=== PATIENT | male | born 1960 | race African-American/Black ===

== ENCOUNTER 2020-12-02 22:45 | Inpatient (IN) | payer OTHER ==
[~2020-12-02] VITALS: Ht 175.3 cm; Wt 92.1 kg
[~2020-12-02 22:45] MED LIST: ABIL5 PO; ASPI-864 PO; BENA20TA10 PO; BUSP10TA4 PO; CLON0.3T4 PO; FLUT1DIS3 IH
[2020-12-02] MEDS ORDERED: NITROGLYCERIN 50MG PREMIX 250 ML IV ONE (23:00)
[2020-12-02] MEDS ORDERED: FUROSEMIDE 100MG/10ML VIAL IVP ONE (23:00)
[2020-12-02 23:16] LABS: BG BASE EXCESS 0.2 mmol/L (-2.0-2.0); BG CARBOXYHEMOGLOBIN 1.7 % (0.5-1.5); BG DEOXYHEMOGLOBIN 0.9 % (0.0-5.0); BG FRACTION INSPIRED OXYGEN 100; BG HCO3 ACT 24.7 mmol/L (22.0-26.0); BG METHEMOGLOBIN 0.2 % (0.0-1.5); BG OXYGEN SATURATION 99.1 % (92.0-98.5); BG OXYHEMOGLOBIN 97.2 % (94.0-97.0); BG PCO2 39.6 mmHg (35.0-45.0); BG PH 7.413 (7.350-7.450); BG PO2 233.3 mmHg (75.0-100.0); BG SAMPLE SITE RIGHT RADIAL; BG VENT MODE MASK - NRB
[2020-12-02] MEDS ORDERED: AZITHROMYCIN 500 MG in DEXT 5% WATER 250 ML IV SCH (23:30)
[2020-12-02] MEDS ORDERED: CEFTRIAXONE 1 G PREMIX 50 ML IV NR (23:30)
[2020-12-02 23:35] LABS: BASOPHILS % 1.1 % (0.0-2.0); HEMATOCRIT. 41.1 % (42.0-52.0); HEMOGLOBIN. 13.9 g/dL (14.0-18.0); LYMPHOCYTES % 55.8 % (20.0-50.0); MEAN CORPUSCULAR HEMOGLOBIN 32.2 pg (28.0-32.0); MEAN CORPUSCULAR VOLUME 95.4 fL (80.0-94.0); MONOCYTES % 12.1 % (2.0-8.0); PLATELET 247 x1000/uL (130-400); RED BLOOD CELL COUNT 4.31 mill/uL (4.7-6.1); RED CELL DISTRIBUTION WIDTH 13.4 % (11.6-14.6)
[2020-12-02 23:40] LABS: CHLORIDE 112 mEq/L (98-107)
[2020-12-02] MEDS ORDERED: NITROGLYCERIN 50MG PREMIX 250 ML IV SCH (23:45)
[2020-12-03] VITALS (144 sets, daily range): BP systolic 101–222; BP diastolic 31–165
[2020-12-03] MEDS ORDERED: MAGNESIUM/ALUMINUM HYDROXIDE/SIMETHICONE 30ML UDC PO PRN (07:30)
[2020-12-03] MEDS ORDERED: IPRATROPIUM/ALBUTEROL 0.5-3(2.5)MG/3ML NEB NEB PRN (07:30)
[2020-12-03] MEDS ORDERED: ACETAMINOPHEN 325MG TABLET PO PRN (07:30)
[2020-12-03] MEDS ORDERED: MORPHINE SULFATE 2 MG/ML CPJ (NOT FOR IM USE) IV PRN (07:30)
[2020-12-03] MEDS ORDERED: HYDROCODONE/ACETAMINOPHEN 5/325MG TABLET PO PRN (07:30)
[2020-12-03] MEDS ORDERED: NA PHOS,M-B/NA PHOS,DI-BA ENEMA 118ML PR PRN (07:30)
[2020-12-03] MEDS ORDERED: DIPHENHYDRAMINE 50MG/ML VIAL IV PRN (07:30)
[2020-12-03] MEDS ORDERED: GUAIFENESIN 200MG/10ML SUGAR FREE UDC PO PRN (07:30)
[2020-12-03] MEDS ORDERED: ONDANSETRON HCL 4MG/2ML INJ IV PRN (07:30)
[2020-12-03] MEDS ORDERED: DOCUSATE SODIUM 100MG CAPSULE PO PRN (07:30)
[2020-12-03] MEDS ORDERED: LORAZEPAM 2MG/ML CPJ IV PRN (07:30)
[2020-12-03] MEDS ORDERED: DEXTROSE 50% WATER 50ML SYRINGE IV PRN (07:45)
[2020-12-03] MEDS: METHYLPREDNISOLONE SOD SUCC 125 MG/2 ML VIAL IV SCH ×3 (08:11→20:17)
[2020-12-03] MEDS: FUROSEMIDE 40MG/4ML VIAL IV SCH ×2 (08:11→16:47)
[2020-12-03] MEDS: METOPROLOL TARTRATE 25MG TABLET PO SCH ×2 (08:12→20:20)
[2020-12-03] MEDS: ENOXAPARIN 40MG/0.4ML SYR SUBCUT SCH (08:12)
[2020-12-03] MEDS: ASPIRIN 81MG EC TABLET PO SCH (08:12)
[2020-12-03] MEDS: CLONIDINE 0.1MG TABLET PO PRN ×2 (08:13→17:22)
[2020-12-03] MEDS: LISINOPRIL 20MG TABLET PO SCH (08:13)
[2020-12-03] MEDS: AMLODIPINE 10MG TABLET PO SCH (08:13)
[2020-12-03] MEDS: BLOOD SUGAR DIAGNOSTIC STRIP TEST SCH ×3 (11:11→21:49)
[2020-12-03] MEDS: INSULIN LISPRO 100 UNITS/ML SUBCUT SCH ×3 (11:41→22:08)
[2020-12-03 13:36] LABS: PHOSPHORUS 1.7 mg/dL (2.5-4.9)
[2020-12-03 18:36] LABS: CLARITY URINE CLEAR (CLEAR); COLOR URINE YELLOW (YELLOW); KETONES URINE NEGATIVE (NEGATIVE); LEUKOCYTE ESTERASE URINE NEGATIVE (NEGATIVE); NITRITE URINE NEGATIVE (NEGATIVE); OCCULT BLOOD URINE NEGATIVE (NEGATIVE); PROTEIN URINE 2+ (NEGATIVE)
[2020-12-04] VITALS (96 sets, daily range): BP systolic 136–200; BP diastolic 51–136
[2020-12-04] MEDS: METHYLPREDNISOLONE SOD SUCC 125 MG/2 ML VIAL IV SCH ×4 (02:35→20:57)
[2020-12-04 04:56] LABS: BASOPHILS % 0.3 % (0.0-2.0); HEMATOCRIT. 37.5 % (42.0-52.0); HEMOGLOBIN. 12.3 g/dL (14.0-18.0); LYMPHOCYTES % 8.2 % (20.0-50.0); MEAN CORPUSCULAR HEMOGLOBIN 31.1 pg (28.0-32.0); MEAN CORPUSCULAR VOLUME 94.8 fL (80.0-94.0); MEAN PLATELET VOLUME 9.6 fl (7.4-10.4); MONOCYTES % 2.1 % (2.0-8.0); NEUTROPHILS % 89.4 % (40.0-76.0); PLATELET 222 x1000/uL (130-400); RED BLOOD CELL COUNT 3.96 mill/uL (4.7-6.1); RED CELL DISTRIBUTION WIDTH 13.3 % (11.6-14.6)
[2020-12-04 05:02] LABS: CHLORIDE 107 mEq/L (98-107)
[2020-12-04 05:11] LABS: LDL CHOLESTEROL 120 mg/dL (5-100)
[2020-12-04 05:12] LABS: HDL CHOLESTEROL 45 mg/dL (40-59)
[2020-12-04 05:19] LABS: T4 FREE 1.19 ng/dL (0.76-1.46)
[2020-12-04] MEDS: BLOOD SUGAR DIAGNOSTIC STRIP TEST SCH ×4 (06:15→21:00)
[2020-12-04] MEDS: INSULIN LISPRO 100 UNITS/ML SUBCUT SCH ×4 (06:22→21:00)
[2020-12-04] MEDS: FUROSEMIDE 40MG/4ML VIAL IV SCH ×2 (06:52→16:58)
[2020-12-04] MEDS: ALBUTEROL 6.7GM HFA INHALER ORI SCH ×3 (08:10→20:55)
[2020-12-04] MEDS: ENOXAPARIN 40MG/0.4ML SYR SUBCUT SCH (08:18)
[2020-12-04] MEDS: ASPIRIN 81MG EC TABLET PO SCH (08:18)
[2020-12-04] MEDS: CLONIDINE 0.1MG TABLET PO PRN ×2 (08:18→22:57)
[2020-12-04] MEDS: AMLODIPINE 10MG TABLET PO SCH (08:18)
[2020-12-04] MEDS: LISINOPRIL 20MG TABLET PO SCH (08:18)
[2020-12-04] MEDS: METOPROLOL TARTRATE 25MG TABLET PO SCH ×2 (08:18→20:59)
[2020-12-04 14:55] LABS: *AMPHETAMINES SCREEN URINE NEGATIVE (NEGATIVE); *BARBITURATES SCREEN URINE NEGATIVE (NEGATIVE)
[2020-12-04 14:56] LABS: *BENZODIAZEPINES SCREEN URINE NEGATIVE (NEGATIVE); *COCAINE SCREEN URINE NEGATIVE (NEGATIVE); CANNABINOID URINE SCREEN PRESUMTIVE POSITIVE (NEGATIVE); METHADONE URINE SCREEN NEGATIVE (NEGATIVE); OPIATES URINE SCREEN NEGATIVE (NEGATIVE); PHENCYCLIDINE URINE SCREEN NEGATIVE (NEGATIVE)
[2020-12-04 18:03] LABS: CREATINE KINASE MB FRACTION 1.7 ng/mL (0.5-3.6)
[2020-12-04 23:36] LABS: CREATINE KINASE MB FRACTION 1.9 ng/mL (0.5-3.6)
[2020-12-05] VITALS (43 sets, daily range): BP systolic 143–194; BP diastolic 64–172
[2020-12-05] MEDS: ALBUTEROL 6.7GM HFA INHALER ORI SCH ×4 (00:30→11:00)
[2020-12-05] MEDS: HYDRALAZINE HCL 50MG TABLET PO SCH ×3 (01:06→13:31)
[2020-12-05] MEDS: METHYLPREDNISOLONE SOD SUCC 125 MG/2 ML VIAL IV SCH ×2 (01:56→09:25)
[2020-12-05 04:49] LABS: HEMATOCRIT. 37.4 % (42.0-52.0); HEMOGLOBIN. 12.4 g/dL (14.0-18.0); MEAN CORPUSCULAR HEMOGLOBIN 31.1 pg (28.0-32.0); MEAN CORPUSCULAR VOLUME 93.8 fL (80.0-94.0); PLATELET 209 x1000/uL (130-400); RED BLOOD CELL COUNT 3.98 mill/uL (4.7-6.1); RED CELL DISTRIBUTION WIDTH 13.2 % (11.6-14.6)
[2020-12-05 04:57] LABS: CHLORIDE 107 mEq/L (98-107)
[2020-12-05 05:08] LABS: CREATINE KINASE 45 IU/L (39-308)
[2020-12-05 05:09] LABS: CREATINE KINASE MB FRACTION 1.5 ng/mL (0.5-3.6)
[2020-12-05] MEDS: INSULIN LISPRO 100 UNITS/ML SUBCUT SCH ×3 (06:19→16:28)
[2020-12-05] MEDS: BLOOD SUGAR DIAGNOSTIC STRIP TEST SCH ×3 (06:19→16:25)
[2020-12-05] MEDS: CLONIDINE 0.1MG TABLET PO PRN (06:23)
[2020-12-05] MEDS: FUROSEMIDE 40MG/4ML VIAL IV SCH ×2 (06:45→17:20)
[2020-12-05] MEDS: CLONIDINE 0.2MG TABLET PO SCH ×2 (09:15→13:31)
[2020-12-05] MEDS: AMLODIPINE 10MG TABLET PO SCH (09:15)
[2020-12-05] MEDS: ASPIRIN 81MG EC TABLET PO SCH (09:15)
[2020-12-05] MEDS: ENOXAPARIN 40MG/0.4ML SYR SUBCUT SCH (09:15)
[2020-12-05] MEDS: METOPROLOL TARTRATE 25MG TABLET PO SCH (09:16)
[2020-12-05] MEDS: LISINOPRIL 20MG TABLET PO SCH (09:16)
[2020-12-05] MEDS ORDERED: IPRATROPIUM/ALBUTEROL 0.5-3(2.5)MG/3ML NEB HHN PRN (11:30)
[2020-12-05] MEDS ORDERED: PREDNISONE 20MG TABLET PO SCH (11:30)
[2020-12-05 11:53] LABS: PLATELET ESTIMATE NORMAL
[2020-12-05] MEDS ORDERED: IPRATROPIUM/ALBUTEROL 0.5-3(2.5)MG/3ML NEB HHN SCH (12:00)
== END 2020-12-05 20:00 | disposition left against medical advice (07) | DRG 194 ==
LOC: ER 22:45 → MICUSO 12-03 00:42 → ENRESERV 12-03 03:59 → 5WST 12-05 13:04
PROVIDERS: ADMIT Internal Medicine; ATTEND Internal Medicine
PROC: 5A09357 Assistance with Respiratory Ventilation, Less than 24 Consecutive Hours, Continuous Positive Airway Pressure (ICD-10-PCS; principal; 2020-12-03)
DX: I13.0 Hypertensive heart and chronic kidney disease with heart failure and stage 1 through stage 4 chronic kidney disease, or unspecified chronic kidney disease (principal); J96.00 Acute respiratory failure, unspecified whether with hypoxia or hypercapnia; N17.0 Acute kidney failure with tubular necrosis; I50.23 Acute on chronic systolic (congestive) heart failure; E11.22 Type 2 diabetes mellitus with diabetic chronic kidney disease; N18.31 Chronic kidney disease, stage 3a; I16.1 Hypertensive emergency; F17.210 Nicotine dependence, cigarettes, uncomplicated; J44.9 Chronic obstructive pulmonary disease, unspecified; F12.90 Cannabis use, unspecified, uncomplicated; F10.10 Alcohol abuse, uncomplicated; E11.40 Type 2 diabetes mellitus with diabetic neuropathy, unspecified; Z53.29 Procedure and treatment not carried out because of patient's decision for other reasons; Z20.822 Contact with and (suspected) exposure to COVID-19; Z86.73 Personal history of transient ischemic attack (TIA), and cerebral infarction without residual deficits
CPT/HCPCS: 36415; 36600; 71045; 76770; 80048; 80053; 80061; 80305; 81003; 82375; 82550; 82553; 82570; 82805; 82962; 83036; 83735; 83880; 84100; 84156; 84439; 84443; 84484; 85025; 85379; 93005; 93970; 94640; 94660; 99291; J0456; J0696; J1650; J1815; J1940; J2930; J3490; J7060; J7512; U0003

== ENCOUNTER 2022-12-02 09:33 | Inpatient (IN) | payer MEDICAID, OTHER ==
[~2022-12-02] VITALS: Ht 190.5 cm; Wt 87.5 kg
[2022-12-02] VITALS (9 sets, daily range): BP systolic 142–177; BP diastolic 70–128
[~2022-12-02 09:33] MED LIST changes: +BENA-8 PO; -BENA20TA10 PO
[2022-12-02] MEDS ORDERED: LABETALOL 5MG/ML SYR 20 MG/4 ML SYRINGE IV ONE (09:45)
[2022-12-02] MEDS ORDERED: NICARDIPINE 40MG/200ML PREMIX 200 ML IV ONE (09:45)
[2022-12-02 10:19] LABS: BASOPHILS % 0.8 % (0.0-2.0); EOSINOPHILS % 4.3 % (0.0-5.0); HEMATOCRIT. 40.5 % (42.0-52.0); HEMOGLOBIN. 13.7 g/dL (14.0-18.0); MEAN CORPUSCULAR HEMOGLOBIN 33.1 pg (28.0-32.0); MEAN CORPUSCULAR VOLUME 97.8 fL (80.0-94.0); MEAN PLATELET VOLUME 9.5 fl (7.4-10.4); MONOCYTES % 9.9 % (2.0-8.0); PLATELET 154 x1000/uL (130-400); RED BLOOD CELL COUNT 4.14 mill/uL (4.7-6.1); RED CELL DISTRIBUTION WIDTH 14.4 % (11.6-14.6)
[2022-12-02 10:28] LABS: PROTHROMBIN TIME 11.1 sec (9.6-11.0)
[2022-12-02 10:29] LABS: CHLORIDE 104 mEq/L (98-107)
[2022-12-02 10:41] LABS: CREATINE KINASE 60 IU/L (39-308); ETHANOL BLOOD < 10 mg/dL; LDL CHOLESTEROL 54 mg/dL (5-100)
[2022-12-02 11:20] LABS: CLARITY URINE CLEAR (CLEAR); COLOR URINE YELLOW (YELLOW); KETONES URINE NEGATIVE (NEGATIVE); LEUKOCYTE ESTERASE URINE NEGATIVE (NEGATIVE); NITRITE URINE POSITIVE (NEGATIVE); OCCULT BLOOD URINE TRACE (NEGATIVE); PH URINE 7.5 (4.5-8.0); PROTEIN URINE 2+ (NEGATIVE); SPECIFIC GRAVITY URINE 1.027 (1.005-1.030)
[2022-12-02] MEDS ORDERED: ASPIRIN 81MG TABLET PO ONE (11:30)
[2022-12-02] MEDS ORDERED: CLOPIDOGREL 75MG TABLET PO ONE (11:30)
[2022-12-02] MEDS ORDERED: FUROSEMIDE 20MG/2ML VIAL IVP ONE (12:00)
[2022-12-02] MEDS ORDERED: CEFTRIAXONE 1GM PREMIX 50 ML IV ONE (12:00)
[2022-12-02 12:19] LABS: *AMPHETAMINES SCREEN URINE NEGATIVE (NEGATIVE); *BARBITURATES SCREEN URINE NEGATIVE (NEGATIVE); *BENZODIAZEPINES SCREEN URINE NEGATIVE (NEGATIVE); *COCAINE SCREEN URINE NEGATIVE (NEGATIVE); CANNABINOID URINE SCREEN PRESUMTIVE POSITIVE (NEGATIVE); METHADONE URINE SCREEN NEGATIVE (NEGATIVE); OPIATES URINE SCREEN PRESUMTIVE POSITIVE (NEGATIVE); PHENCYCLIDINE URINE SCREEN NEGATIVE (NEGATIVE)
[2022-12-02] MEDS ORDERED: NICARDIPINE 40MG/200ML PREMIX 200 ML IV STA (12:36)
[2022-12-02] MEDS ORDERED: IOHEXOL-350 100 ML BOTTLE ONE (13:34)
[2022-12-02] MEDS ORDERED: NICARDIPINE 40MG/200ML PREMIX 200 ML IV PRN (18:00)
[2022-12-02] MEDS ORDERED: HYDROCODONE/ACETAMINOPHEN 5/325MG TABLET PO PRN (23:45)
[2022-12-02] MEDS ORDERED: GUAIFENESIN 200MG/10ML SUGAR FREE UDC PO PRN (23:45)
[2022-12-02] MEDS ORDERED: ENOXAPARIN 40MG/0.4ML SYR SUBCUT SCH (23:45)
[2022-12-02] MEDS ORDERED: IPRATROPIUM/ALBUTEROL 0.5-3(2.5)MG/3ML NEB HHN PRN (23:45)
[2022-12-02] MEDS ORDERED: ACETAMINOPHEN 325MG TABLET PO PRN ×2 (23:45)
[2022-12-02] MEDS ORDERED: CLONIDINE 0.1MG TABLET PO PRN (23:45)
[2022-12-02] MEDS ORDERED: NALOXONE HCL 0.4MG/ML VIAL IV PRN (23:45)
[2022-12-02] MEDS ORDERED: ONDANSETRON HCL 4MG/2ML INJ IV PRN (23:45)
[2022-12-02] MEDS ORDERED: DOCUSATE SODIUM 100MG CAPSULE PO PRN (23:45)
[2022-12-03] VITALS (95 sets, daily range): BP systolic 132–209; BP diastolic 41–144
[2022-12-03] MEDS ORDERED: DEXTROSE 50% WATER 50ML SYRINGE IV PRN
[2022-12-03] MEDS: INSULIN GLARGINE 100 UNITS/ML SUBCUT SCH ×2 (00:32→21:20)
[2022-12-03] MEDS: NICARDIPINE 40MG/200ML PREMIX 200 ML IV PRN ×6 (01:19→17:42)
[2022-12-03 05:08] LABS: BASOPHILS % 0.7 % (0.0-2.0); EOSINOPHILS % 4.2 % (0.0-5.0); HEMATOCRIT. 41.9 % (42.0-52.0); HEMOGLOBIN. 14.4 g/dL (14.0-18.0); LYMPHOCYTES % 24.7 % (20.0-50.0); MEAN CORPUSCULAR HEMOGLOBIN 33.5 pg (28.0-32.0); MEAN CORPUSCULAR VOLUME 97.8 fL (80.0-94.0); MEAN PLATELET VOLUME 9.9 fl (7.4-10.4); MONOCYTES % 10.2 % (2.0-8.0); NEUTROPHILS % 60.2 % (40.0-76.0); PLATELET 167 x1000/uL (130-400); RED BLOOD CELL COUNT 4.28 mill/uL (4.7-6.1); RED CELL DISTRIBUTION WIDTH 14.7 % (11.6-14.6)
[2022-12-03 05:26] LABS: CHLORIDE 109 mEq/L (98-107)
[2022-12-03 05:41] LABS: HDL CHOLESTEROL 34 mg/dL (40-59); LDL CHOLESTEROL 56 mg/dL (5-100); T4 FREE 1.23 ng/dL (0.76-1.46)
[2022-12-03 06:04] LABS: SODIUM URINE RANDOM 24 mEq/L
[2022-12-03] MEDS: BLOOD SUGAR DIAGNOSTIC STRIP TEST SCH ×4 (07:58→21:10)
[2022-12-03] MEDS ORDERED: ENOXAPARIN 30MG/0.3ML SYR SUBCUT SCH (09:00)
[2022-12-03] MEDS: FUROSEMIDE 40MG/4ML VIAL IVP SCH ×2 (09:52→17:42)
[2022-12-03] MEDS: ASPIRIN 81MG EC TABLET PO SCH (09:52)
[2022-12-03] MEDS: CLOPIDOGREL 75MG TABLET PO SCH (09:52)
[2022-12-03] MEDS: PANTOPRAZOLE SODIUM 40 MG/VIAL IV SCH (09:52)
[2022-12-03] MEDS: INSULIN LISPRO 100 UNITS/ML SUBCUT SCH ×4 (09:53→21:20)
[2022-12-03] MEDS ORDERED: PNEUMOCOCCAL 23-VAL P-SAC VAC 0.5 ML IM ONE (11:00)
[2022-12-03] MEDS: ATORVASTATIN CALCIUM 40MG TABLET PO SCH (21:16)
[2022-12-04] VITALS (91 sets, daily range): BP systolic 65–217; BP diastolic 18–174
[2022-12-04] MEDS: NICARDIPINE 40MG/200ML PREMIX 200 ML IV PRN ×2 (05:02→12:48)
[2022-12-04 05:26] LABS: BASOPHILS % 1.2 % (0.0-2.0); EOSINOPHILS % 5.2 % (0.0-5.0); HEMATOCRIT. 40.7 % (42.0-52.0); HEMOGLOBIN. 13.7 g/dL (14.0-18.0); LYMPHOCYTES % 27.3 % (20.0-50.0); MEAN CORPUSCULAR HEMOGLOBIN 32.8 pg (28.0-32.0); MEAN CORPUSCULAR VOLUME 97.7 fL (80.0-94.0); MEAN PLATELET VOLUME 9.8 fl (7.4-10.4); MONOCYTES % 12.1 % (2.0-8.0); NEUTROPHILS % 54.2 % (40.0-76.0); PLATELET 155 x1000/uL (130-400); RED BLOOD CELL COUNT 4.17 mill/uL (4.7-6.1); RED CELL DISTRIBUTION WIDTH 14.3 % (11.6-14.6)
[2022-12-04 05:46] LABS: CHLORIDE 109 mEq/L (98-107)
[2022-12-04] MEDS: ENOXAPARIN 40MG/0.4ML SYR SUBCUT SCH (06:19)
[2022-12-04] MEDS: BLOOD SUGAR DIAGNOSTIC STRIP TEST SCH ×4 (08:05→21:15)
[2022-12-04] MEDS: INSULIN LISPRO 100 UNITS/ML SUBCUT SCH ×4 (08:25→21:29)
[2022-12-04] MEDS: PANTOPRAZOLE SODIUM 40 MG/VIAL IV SCH (08:25)
[2022-12-04] MEDS: ASPIRIN 81MG EC TABLET PO SCH (08:26)
[2022-12-04] MEDS: CLOPIDOGREL 75MG TABLET PO SCH (08:27)
[2022-12-04] MEDS: FUROSEMIDE 40MG/4ML VIAL IVP SCH ×2 (08:27→17:45)
[2022-12-04] MEDS ORDERED: LORAZEPAM 0.5MG TABLET PO NR (09:45)
[2022-12-04] MEDS: HYDRALAZINE HCL 25MG TABLET PO SCH ×2 (13:58→21:28)
[2022-12-04] MEDS: CLONIDINE 0.2MG TABLET PO SCH ×2 (13:59→21:28)
[2022-12-04] MEDS ORDERED: NICARDIPINE 50 MG in SODIUM CHLORIDE 0.9% 250 ML IV PRN (15:00)
[2022-12-04] MEDS: TAMSULOSIN HCL 0.4MG SR CAPSULE PO SCH (17:45)
[2022-12-04] MEDS: ATORVASTATIN CALCIUM 40MG TABLET PO SCH (21:27)
[2022-12-04] MEDS: INSULIN GLARGINE 100 UNITS/ML SUBCUT SCH (21:30)
[2022-12-05] VITALS (53 sets, daily range): BP systolic 126–191; BP diastolic 62–126
[2022-12-05 04:59] LABS: BASOPHILS % 0.7 % (0.0-2.0); EOSINOPHILS % 3.3 % (0.0-5.0); HEMATOCRIT. 40.4 % (42.0-52.0); HEMOGLOBIN. 13.6 g/dL (14.0-18.0); LYMPHOCYTES % 21.7 % (20.0-50.0); MEAN CORPUSCULAR HEMOGLOBIN 32.9 pg (28.0-32.0); MEAN CORPUSCULAR VOLUME 97.6 fL (80.0-94.0); MEAN PLATELET VOLUME 9.7 fl (7.4-10.4); MONOCYTES % 13.2 % (2.0-8.0); NEUTROPHILS % 61.1 % (40.0-76.0); PLATELET 155 x1000/uL (130-400); RED BLOOD CELL COUNT 4.14 mill/uL (4.7-6.1); RED CELL DISTRIBUTION WIDTH 14.1 % (11.6-14.6)
[2022-12-05 05:06] LABS: CHLORIDE 110 mEq/L (98-107)
[2022-12-05] MEDS: CLONIDINE 0.2MG TABLET PO SCH ×2 (05:51→14:12)
[2022-12-05] MEDS: HYDRALAZINE HCL 25MG TABLET PO SCH ×2 (05:52→14:11)
[2022-12-05] MEDS: BLOOD SUGAR DIAGNOSTIC STRIP TEST SCH ×2 (07:50→12:56)
[2022-12-05] MEDS: INSULIN LISPRO 100 UNITS/ML SUBCUT SCH ×2 (09:35→12:56)
[2022-12-05] MEDS: ASPIRIN 81MG EC TABLET PO SCH (09:42)
[2022-12-05] MEDS: PANTOPRAZOLE SODIUM 40 MG/VIAL IV SCH (09:42)
[2022-12-05] MEDS: ENOXAPARIN 40MG/0.4ML SYR SUBCUT SCH (09:42)
[2022-12-05] MEDS: CLOPIDOGREL 75MG TABLET PO SCH (09:42)
[2022-12-05] MEDS: TAMSULOSIN HCL 0.4MG SR CAPSULE PO SCH (09:42)
[2022-12-05] MEDS: FUROSEMIDE 40MG/4ML VIAL IVP SCH (09:42)
== END 2022-12-05 17:45 | disposition left against medical advice (07) | DRG 45 ==
LOC: ER 09:35 → CVICU 11:29 → ENRESERV 21:27
PROVIDERS: ADMIT Internal Medicine; ATTEND Internal Medicine
DX: I63.9 Cerebral infarction, unspecified (principal); I50.41 Acute combined systolic (congestive) and diastolic (congestive) heart failure; E44.0 Moderate protein-calorie malnutrition; N17.9 Acute kidney failure, unspecified; I65.22 Occlusion and stenosis of left carotid artery; E11.51 Type 2 diabetes mellitus with diabetic peripheral angiopathy without gangrene; E78.5 Hyperlipidemia, unspecified; I13.0 Hypertensive heart and chronic kidney disease with heart failure and stage 1 through stage 4 chronic kidney disease, or unspecified chronic kidney disease; J44.9 Chronic obstructive pulmonary disease, unspecified; N39.0 Urinary tract infection, site not specified; Z20.822 Contact with and (suspected) exposure to COVID-19; N18.30 Chronic kidney disease, stage 3 unspecified; E11.22 Type 2 diabetes mellitus with diabetic chronic kidney disease; F17.210 Nicotine dependence, cigarettes, uncomplicated; I16.1 Hypertensive emergency; I34.0 Nonrheumatic mitral (valve) insufficiency; I25.2 Old myocardial infarction; Z53.29 Procedure and treatment not carried out because of patient's decision for other reasons; Z82.49 Family history of ischemic heart disease and other diseases of the circulatory system; Z79.82 Long term (current) use of aspirin; Z86.73 Personal history of transient ischemic attack (TIA), and cerebral infarction without residual deficits; Z79.02 Long term (current) use of antithrombotics/antiplatelets; Z79.4 Long term (current) use of insulin; Z79.899 Other long term (current) drug therapy
CPT/HCPCS: 36415; 70496; 70498; 70551; 71045; 76770; 76872; 80053; 80061; 80305; 80320; 81003; 82088; 82550; 82962; 83036; 83721; 83735; 83880; 83935; 84153; 84244; 84300; 84439; 84443; 84484; 85025; 85379; 87426; 90732; 92610; 93005; 93306; 93970; 97162; 99291; C9113; C9803; J0696; J1650; J1815; J1940; J3490; Q9967; G0103; G0480

== ENCOUNTER 2023-12-16 09:24 | Inpatient (IN) | payer MEDICAID, OTHER ==
[~2023-12-16] VITALS: Ht 172.7 cm; Wt 68.0 kg
[2023-12-16 09:28] VITALS: O2SAT 96
[2023-12-16 10:15] LABS: BASOPHILS % 0.2 % (0.0-2.0); HEMATOCRIT. 26.8 % (42.0-52.0); HEMOGLOBIN. 8.1 g/dL (14.0-18.0); LYMPHOCYTES % 7.1 % (20.0-50.0); MEAN CORPUSCULAR HEMOGLOBIN 22.2 pg (28.0-32.0); MEAN CORPUSCULAR HGB CONC 30.2 g/dL (31.0-37.0); MEAN CORPUSCULAR VOLUME 73.5 fL (80.0-94.0); MONOCYTES % 7.8 % (2.0-8.0); NEUTROPHILS % 84.9 % (40.0-76.0); PLATELET 446 x1000/uL (130-400); RED BLOOD CELL COUNT 3.65 mill/uL (4.7-6.1); RED CELL DISTRIBUTION WIDTH 25.3 % (11.6-14.6); WHITE BLOOD COUNT 12.1 x1000/uL (4.5-11.0)
[2023-12-16] MEDS: SODIUM CHLORIDE 0.9% 1,000 ML IV ONE ×2 (10:18→11:59)
[2023-12-16] MEDS: KETOROLAC 30MG/ML VIAL IV STA (10:18)
[2023-12-16] MEDS: ONDANSETRON HCL 4MG/2ML INJ IV STA (10:18)
[2023-12-16 10:23] LABS: ADD RBC MORPHOLOGY YES; DIFFERENTIAL COMMENT 1
[2023-12-16 10:31] LABS: CHLORIDE 101 mEq/L (98-107); POTASSIUM 3.9 mEq/L (3.5-5.1); SODIUM 145 mEq/L (136-145)
[2023-12-16 10:32] LABS: CARBON DIOXIDE 26 mEq/L (21-32)
[2023-12-16 10:33] LABS: CALCIUM 10.1 mg/dL (8.7-10.4)
[2023-12-16 10:37] LABS: CREATININE 4.1 mg/dL (0.6-1.3); GLUCOSE 181 mg/dL (70-105)
[2023-12-16 10:38] LABS: UREA NITROGEN BLOOD 66 mg/dL (9-23)
[2023-12-16 10:39] LABS: ALANINE AMINOTRANSFERASE < 7 IU/L (10-49); ALBUMIN 4.7 g/dL (3.2-4.8); ASPARTATE AMINOTRANSFERASE 16 IU/L (<34)
[2023-12-16 10:40] LABS: BILIRUBIN TOTAL 0.7 mg/dL (0.1-1.0); PROTEIN TOTAL 8.1 g/dL (6.0-8.3)
[2023-12-16] MEDS: HYDRALAZINE 20MG/ML VIAL IV ONE (10:54)
[2023-12-16 11:00] LABS: MICROCYTOSIS 2+; PLATELET ESTIMATE INCREASED
[2023-12-16 11:01] LABS: ANISOCYTOSIS 3+; HYPOCHROMASIA 1+; TARGET CELLS FEW
[2023-12-16] MEDS: ONDANSETRON HCL 4MG/2ML INJ IV ONE (11:30)
[2023-12-16] MEDS: MORPHINE SULFATE 4 MG/ML INJ (FOR IV/IM USE) IV ONE (12:00)
[2023-12-16 12:07] LABS: TROPONIN I HIGH SENSITIVITY 198 ng/L (3.0-53)
[2023-12-16] MEDS ORDERED: CLONIDINE HCL 0.2MG/24HR PATCH TD NR (15:00)
[2023-12-16] MEDS: SODIUM CHLORIDE 0.9% 1,000 ML IV SCH (15:14)
[2023-12-16 18:11] VITALS: BP 186/80; PULSE 127; RESP 20; TEMP 97.2
[2023-12-16] MEDS ORDERED: ONDANSETRON HCL 4MG/2ML INJ IV PRN ×2 (18:15→23:45)
[2023-12-16] MEDS ORDERED: CODE473S7 MT (19:06)
[2023-12-16] MEDS ORDERED: INSHUMSS SUBCUT (19:06)
[2023-12-16] MEDS ORDERED: EMPA10TA PO (19:06)
[2023-12-16] MEDS ORDERED: GABA-532 PO (19:06)
[2023-12-16] MEDS ORDERED: FERR-71 MT (19:06)
[2023-12-16] MEDS ORDERED: CLOP75TA33 PO (19:06)
[2023-12-16] MEDS ORDERED: HYDR50TA40 PO (19:06)
[2023-12-16] MEDS ORDERED: HYDR12.54 PO (19:06)
[2023-12-16] MEDS ORDERED: METO-539 MT (19:06)
[2023-12-16] MEDS ORDERED: POTA-204 MT (19:06)
[2023-12-16] MEDS ORDERED: OXYB-52 PO (19:06)
[2023-12-16] MEDS ORDERED: FURO-151 PO (19:06)
[2023-12-16 20:00] VITALS: BP 170/86; PULSE 107; RESP 20; TEMP 98.3
[2023-12-16] MEDS ORDERED: *PATIENT'S OWN MEDICATION STORAGE XX SCH (20:00)
[2023-12-16] MEDS ORDERED: ACETAMINOPHEN 325MG TABLET PO PRN (23:45)
[2023-12-17] VITALS (29 sets, daily range): BP systolic 104–182; BP diastolic 54–99; PULSE 58–106; RESP 0–23; TEMP 96.3–98.7
[2023-12-17] MEDS: HYDRALAZINE 20MG/ML VIAL IV PRN (00:24)
[2023-12-17] MEDS: DEXT 5%/0.45% NACL 1000ML 1,000 ML IV SCH (05:18)
[2023-12-17 07:42] LABS: CARBON DIOXIDE 25 mEq/L (21-32); CHLORIDE 115 mEq/L (98-107); POTASSIUM 3.5 mEq/L (3.5-5.1); SODIUM 149 mEq/L (136-145)
[2023-12-17 07:43] LABS: CALCIUM 8.6 mg/dL (8.7-10.4)
[2023-12-17 07:47] LABS: GLUCOSE 159 mg/dL (70-105)
[2023-12-17 07:48] LABS: UREA NITROGEN BLOOD 50 mg/dL (9-23)
[2023-12-17 07:50] LABS: PHOSPHORUS 3.8 mg/dL (2.5-4.9)
[2023-12-17 07:51] LABS: TROPONIN I HIGH SENSITIVITY 13415 ng/L (3.0-53)
[2023-12-17 07:52] LABS: CREATININE 2.8 mg/dL (0.6-1.3)
[2023-12-17 08:06] LABS: BASOPHILS % 0.4 % (0.0-2.0); EOSINOPHILS % 0.5 % (0.0-5.0); HEMATOCRIT. 22.9 % (42.0-52.0); HEMOGLOBIN. 7.1 g/dL (14.0-18.0); LYMPHOCYTES % 7.2 % (20.0-50.0); MEAN CORPUSCULAR HEMOGLOBIN 22.7 pg (28.0-32.0); MEAN CORPUSCULAR HGB CONC 30.8 g/dL (31.0-37.0); MEAN CORPUSCULAR VOLUME 73.7 fL (80.0-94.0); MEAN PLATELET VOLUME 8.2 fl (7.4-10.4); MONOCYTES % 8.2 % (2.0-8.0); NEUTROPHILS % 83.7 % (40.0-76.0); PLATELET 326 x1000/uL (130-400); RED BLOOD CELL COUNT 3.11 mill/uL (4.7-6.1); WHITE BLOOD COUNT 10.1 x1000/uL (4.5-11.0)
[2023-12-17 08:15] LABS: ADD RBC MORPHOLOGY NO; DIFFERENTIAL COMMENT 1
[2023-12-17] MEDS: CLOPIDOGREL 75MG TABLET PO SCH (08:34)
[2023-12-17] MEDS: ARIPIPRAZOLE 5MG TABLET PO SCH (08:34)
[2023-12-17] MEDS: BUSPIRONE HCL 10MG TABLET PO SCH (08:34)
[2023-12-17] MEDS: ASPIRIN 81MG EC TABLET PO SCH (08:35)
[2023-12-17] MEDS: METOPROLOL TARTRATE 50MG TABLET PO SCH (08:35)
[2023-12-17] MEDS: CLONIDINE 0.3MG TABLET PO SCH (08:36)
[2023-12-17] MEDS: HYDRALAZINE HCL 50MG TABLET PO SCH (08:36)
[2023-12-17] MEDS: PIPERACILLIN/TAZO 3.375G/50ML 50 ML IV SCH (08:38)
[2023-12-17] MEDS: PANTOPRAZOLE SODIUM 40 MG/VIAL IV SCH (08:38)
[2023-12-17] MEDS: ENOXAPARIN 80MG/0.8ML SYR SUBCUT SCH (12:47)
[2023-12-17 15:31] LABS: TROPONIN I HIGH SENSITIVITY 17911 ng/L (3.0-53)
[2023-12-17] MEDS: TERAZOSIN HCL 1MG CAPSULE PO SCH (21:00)
[2023-12-17] MEDS: ATORVASTATIN CALCIUM 40MG TABLET PO SCH (21:00)
[2023-12-17 23:48] LABS: TROPONIN I HIGH SENSITIVITY 21334 ng/L (3.0-53)
[2023-12-18] VITALS (9 sets, daily range): BP systolic 106–154; BP diastolic 48–75; PULSE 56–94; RESP 15–23; TEMP 97.1
== END 2023-12-18 10:49 | disposition left against medical advice (07) | DRG 190 ==
LOC: ER 09:24 → 7WST 13:35 → EDBEDREQSVC 13:41 → EDBEDREQ 13:41 → EDBEDREQTM 13:41 → CVICU 12-17 09:57
PROVIDERS: ADMIT Internal Medicine; ATTEND Internal Medicine
DX: I21.4 Non-ST elevation (NSTEMI) myocardial infarction (principal); E87.0 Hyperosmolality and hypernatremia; N17.9 Acute kidney failure, unspecified; I13.0 Hypertensive heart and chronic kidney disease with heart failure and stage 1 through stage 4 chronic kidney disease, or unspecified chronic kidney disease; I50.9 Heart failure, unspecified; I69.351 Hemiplegia and hemiparesis following cerebral infarction affecting right dominant side; E11.22 Type 2 diabetes mellitus with diabetic chronic kidney disease; D64.9 Anemia, unspecified; N32.89 Other specified disorders of bladder; K42.0 Umbilical hernia with obstruction, without gangrene; D72.829 Elevated white blood cell count, unspecified; I16.1 Hypertensive emergency; E78.5 Hyperlipidemia, unspecified; F17.210 Nicotine dependence, cigarettes, uncomplicated; I25.10 Atherosclerotic heart disease of native coronary artery without angina pectoris; I65.22 Occlusion and stenosis of left carotid artery; N18.30 Chronic kidney disease, stage 3 unspecified; J44.89 Other specified chronic obstructive pulmonary disease; I49.3 Ventricular premature depolarization; I34.0 Nonrheumatic mitral (valve) insufficiency; E11.51 Type 2 diabetes mellitus with diabetic peripheral angiopathy without gangrene; Z53.29 Procedure and treatment not carried out because of patient's decision for other reasons; F12.90 Cannabis use, unspecified, uncomplicated; Z91.199 Patient's noncompliance with other medical treatment and regimen due to unspecified reason; N13.9 Obstructive and reflux uropathy, unspecified
CPT/HCPCS: 36415; 71045; 74018; 74176; 80048; 80053; 83735; 84100; 84153; 84484; 85025; 93005; 93970; 99291; A6261; C9113; J0360; J1650; J1885; J2270; J2405; J2543; J7030

== ENCOUNTER 2023-12-22 10:35 | Inpatient (IN) | payer MEDICAID, OTHER ==
[~2023-12-22] VITALS: Ht 180.3 cm; Wt 69.4 kg
[~2023-12-22 10:35] MED LIST changes: +CLOP75TA33 PO; +CODE473S7 MT; +EMPA10TA PO; +FERR-71 MT; +FURO-151 PO; +GABA-532 PO; +HYDR12.54 PO; +HYDR50TA40 PO; +INSHUMSS SUBCUT; +METO-539 MT; +OXYB-52 PO; +POTA-204 MT
[2023-12-22 11:53] LABS: BASOPHILS % 0.5 % (0.0-2.0); EOSINOPHILS % 0.7 % (0.0-5.0); LYMPHOCYTES % 21.7 % (20.0-50.0); MEAN CORPUSCULAR HEMOGLOBIN 22.4 pg (28.0-32.0); MEAN CORPUSCULAR HGB CONC 29.7 g/dL (31.0-37.0); MEAN CORPUSCULAR VOLUME 75.5 fL (80.0-94.0); MEAN PLATELET VOLUME 7.5 fl (7.4-10.4); MONOCYTES % 10.5 % (2.0-8.0); NEUTROPHILS % 66.6 % (40.0-76.0); PLATELET 262 x1000/uL (130-400); RED BLOOD CELL COUNT 2.73 mill/uL (4.7-6.1); RED CELL DISTRIBUTION WIDTH 25.5 % (11.6-14.6); WHITE BLOOD COUNT 7.2 x1000/uL (4.5-11.0)
[2023-12-22 11:57] LABS: ADD RBC MORPHOLOGY YES; DIFFERENTIAL COMMENT 1; HEMATOCRIT. 20.6 % (42.0-52.0); HEMOGLOBIN. 6.1 g/dL (14.0-18.0)
[2023-12-22 11:58] LABS: CHLORIDE 116 mEq/L (98-107); POTASSIUM 4.1 mEq/L (3.5-5.1); SODIUM 146 mEq/L (136-145)
[2023-12-22 11:59] LABS: CARBON DIOXIDE 20 mEq/L (21-32)
[2023-12-22 12:00] LABS: CALCIUM 8.3 mg/dL (8.7-10.4)
[2023-12-22 12:04] LABS: CREATININE 2.2 mg/dL (0.6-1.3); GLUCOSE 105 mg/dL (70-105); UREA NITROGEN BLOOD 21 mg/dL (9-23)
[2023-12-22 12:06] LABS: ALANINE AMINOTRANSFERASE 14 IU/L (10-49); ALBUMIN 3.5 g/dL (3.2-4.8); ASPARTATE AMINOTRANSFERASE 43 IU/L (<34)
[2023-12-22 12:07] LABS: BILIRUBIN TOTAL 0.3 mg/dL (0.1-1.0); PROTEIN TOTAL 6.4 g/dL (6.0-8.3)
[2023-12-22 12:09] LABS: TROPONIN I HIGH SENSITIVITY 2980 ng/L (3.0-53)
[2023-12-22 12:19] LABS: ANISOCYTOSIS 3+; MICROCYTOSIS 1+
[2023-12-22 12:20] LABS: HYPOCHROMASIA 1+; PLATELET ESTIMATE NORMAL
[2023-12-22 17:46] VITALS: BP 178/89; PULSE 72; RESP 18; TEMP 97.2
[2023-12-22] MEDS: CLONIDINE 0.1MG TABLET PO PRN (18:27)
[2023-12-22] MEDS ORDERED: FOLI0.4T6 PO (18:28)
[2023-12-22] MEDS ORDERED: OXYB5TAB21 PO (18:28)
[2023-12-22] MEDS ORDERED: FERR-63 PO (18:28)
[2023-12-22] MEDS ORDERED: HYDR50TA39 PO (18:28)
[2023-12-22] MEDS ORDERED: DOCU250C14 PO (18:28)
[2023-12-22] MEDS ORDERED: HYDR12.54 PO (18:31)
[2023-12-22] MEDS ORDERED: FURO40TA5 PO (18:31)
[2023-12-22] MEDS ORDERED: GABA-532 PO (18:31)
[2023-12-22] MEDS ORDERED: CLOP75TA33 PO (18:31)
[2023-12-22] MEDS ORDERED: EMPA10TA PO (18:31)
[2023-12-22] MEDS ORDERED: ATOR20TA65 PO (18:31)
[2023-12-22 20:00] VITALS: BP_SYST 147; BP_SYST 178; BP_DIAS 78; BP_DIAS 89; PULSE 72; PULSE 75; RESP 18; RESP 20; TEMP 97.6; TEMP 98.6
[2023-12-22 21:01] LABS: HEMATOCRIT 22.3 % (42.0-52.0); HEMOGLOBIN 6.7 g/dL (14.0-18.0)
[2023-12-22 21:08] LABS: TROPONIN I HIGH SENSITIVITY 2406 ng/L (3.0-53)
[2023-12-22] MEDS ORDERED: LACTULOSE 20G/30ML UDC PO PRN (22:00)
[2023-12-22] MEDS: CLONIDINE 0.2MG TABLET PO NR (22:49)
[2023-12-22] MEDS: HYDRALAZINE 20MG/ML VIAL IV PRN (22:49)
[2023-12-23] VITALS (11 sets, daily range): BP systolic 142–166; BP diastolic 64–81; PULSE 66–85; RESP 15–20; TEMP 97.3–99
[2023-12-23 07:13] LABS: POTASSIUM 4.1 mEq/L (3.5-5.1)
[2023-12-23 07:14] LABS: CALCIUM 8.1 mg/dL (8.7-10.4)
[2023-12-23 07:19] LABS: CREATININE 1.6 mg/dL (0.6-1.3)
[2023-12-23 07:28] LABS: BASOPHILS % 0.7 % (0.0-2.0); EOSINOPHILS % 2.7 % (0.0-5.0); MEAN CORPUSCULAR HEMOGLOBIN 24.4 pg (28.0-32.0); MEAN CORPUSCULAR HGB CONC 31.3 g/dL (31.0-37.0); MEAN PLATELET VOLUME 8.2 fl (7.4-10.4); MONOCYTES % 9.7 % (2.0-8.0); NEUTROPHILS % 65.9 % (40.0-76.0); PLATELET 184 x1000/uL (130-400); RED BLOOD CELL COUNT 3.08 mill/uL (4.7-6.1); RED CELL DISTRIBUTION WIDTH 25.2 % (11.6-14.6); WHITE BLOOD COUNT 7.4 x1000/uL (4.5-11.0)
[2023-12-23 08:33] LABS: DIFFERENTIAL COMMENT 1; HEMOGLOBIN. 7.5 g/dL (14.0-18.0)
[2023-12-23 09:17] LABS: PLATELET COUNT 184 x1000/uL (130-400)
[2023-12-23 15:05] LABS: BASOPHILS % 0.9 % (0.0-2.0); EOSINOPHILS % 1.9 % (0.0-5.0); HEMATOCRIT. 25.9 % (42.0-52.0); HEMOGLOBIN. 7.9 g/dL (14.0-18.0); MEAN CORPUSCULAR HEMOGLOBIN 23.4 pg (28.0-32.0); MEAN CORPUSCULAR HGB CONC 30.5 g/dL (31.0-37.0); MEAN CORPUSCULAR VOLUME 76.6 fL (80.0-94.0); MEAN PLATELET VOLUME 8.2 fl (7.4-10.4); MONOCYTES % 10.6 % (2.0-8.0); NEUTROPHILS % 66.6 % (40.0-76.0); PLATELET 201 x1000/uL (130-400); RED BLOOD CELL COUNT 3.39 mill/uL (4.7-6.1); RED CELL DISTRIBUTION WIDTH 25.5 % (11.6-14.6); WHITE BLOOD COUNT 7.5 x1000/uL (4.5-11.0)
[2023-12-23 15:13] LABS: PROTHROMBIN TIME 10.9 sec (9.6-11.0)
[2023-12-23 15:16] LABS: CHLORIDE 115 mEq/L (98-107); POTASSIUM 4.3 mEq/L (3.5-5.1); SODIUM 141 mEq/L (136-145)
[2023-12-23 15:17] LABS: CALCIUM 8.4 mg/dL (8.7-10.4); CARBON DIOXIDE 21 mEq/L (21-32); DIFFERENTIAL COMMENT 1
[2023-12-23 15:22] LABS: CREATININE 1.7 mg/dL (0.6-1.3); GLUCOSE 148 mg/dL (70-105); IRON 43 ug/dL (65-175); UREA NITROGEN BLOOD 17 mg/dL (9-23)
[2023-12-23 15:25] LABS: TOTAL IRON BINDING CAPACITY 236 ug/dl (250-425)
[2023-12-23 15:27] LABS: FERRITIN 15 ng/mL (22-322); VITAMIN B12 SERUM 493 pg/mL (211-911)
[2023-12-23 15:31] LABS: FOLIC ACID (FOLATE) SERUM > 20.00 ng/mL (>5.38)
[2023-12-23] MEDS: IRON SUCROSE COMPLEX 100 MG/5 ML ML IV SCH (17:23)
[2023-12-23] MEDS: HYDRALAZINE HCL 50MG TABLET PO SCH (17:23)
[2023-12-23] MEDS: METOPROLOL TARTRATE 50MG TABLET PO SCH (17:23)
[2023-12-23] MEDS: ATORVASTATIN CALCIUM 20MG TABLET PO SCH (20:59)
[2023-12-23] MEDS: PANTOPRAZOLE SODIUM 40 MG/VIAL IV SCH (20:59)
[2023-12-24] VITALS: BP 156/74; PULSE 69; RESP 18; TEMP 98.1
[2023-12-24 04:00] VITALS: BP 165/69; PULSE 72; RESP 18; TEMP 98
[2023-12-24 06:47] LABS: BASOPHILS % 0.4 % (0.0-2.0); EOSINOPHILS % 2.6 % (0.0-5.0); HEMATOCRIT. 26.4 % (42.0-52.0); HEMOGLOBIN. 8.2 g/dL (14.0-18.0); LYMPHOCYTES % 20.9 % (20.0-50.0); MEAN CORPUSCULAR HEMOGLOBIN 23.7 pg (28.0-32.0); MEAN CORPUSCULAR HGB CONC 31.1 g/dL (31.0-37.0); MEAN CORPUSCULAR VOLUME 76.3 fL (80.0-94.0); MONOCYTES % 10.3 % (2.0-8.0); NEUTROPHILS % 65.8 % (40.0-76.0); PLATELET 193 x1000/uL (130-400); RED BLOOD CELL COUNT 3.46 mill/uL (4.7-6.1); RED CELL DISTRIBUTION WIDTH 25.1 % (11.6-14.6); WHITE BLOOD COUNT 7.5 x1000/uL (4.5-11.0)
[2023-12-24 06:49] LABS: ADD RBC MORPHOLOGY YES; DIFFERENTIAL COMMENT 1
[2023-12-24 07:05] LABS: CHLORIDE 115 mEq/L (98-107); POTASSIUM 4.4 mEq/L (3.5-5.1); SODIUM 141 mEq/L (136-145)
[2023-12-24 07:06] LABS: CALCIUM 8.2 mg/dL (8.7-10.4); CARBON DIOXIDE 20 mEq/L (21-32)
[2023-12-24 07:11] LABS: CREATININE 1.7 mg/dL (0.6-1.3); GLUCOSE 88 mg/dL (70-105); UREA NITROGEN BLOOD 15 mg/dL (9-23)
[2023-12-24 07:12] LABS: ALANINE AMINOTRANSFERASE 12 IU/L (10-49)
[2023-12-24 07:13] LABS: ALBUMIN 3.3 g/dL (3.2-4.8); ASPARTATE AMINOTRANSFERASE 31 IU/L (<34); BILIRUBIN TOTAL 0.6 mg/dL (0.1-1.0)
[2023-12-24 08:00] VITALS: BP 157/68; PULSE 64; RESP 20; TEMP 98
[2023-12-24] MEDS: FUROSEMIDE 40MG TABLET PO SCH (10:28)
[2023-12-24 12:00] VITALS: BP 144/68; PULSE 61; RESP 20; TEMP 98.1
[2023-12-24 16:00] VITALS: BP 153/79; PULSE 68; RESP 20; TEMP 99.4
[2023-12-24] MEDS: ASPIRIN 81MG TABLET PO SCH (17:35)
[2023-12-24] MEDS: LACTULOSE 20G/30ML UDC PO NR (17:38)
[2023-12-24 17:53] LABS: ANISOCYTOSIS 2+; HYPOCHROMASIA 1+; MICROCYTOSIS 1+; PLATELET ESTIMATE NORMAL
[2023-12-24 20:00] VITALS: BP 176/62; PULSE 77; RESP 18; TEMP 96
[2023-12-25 04:53] VITALS: BP 174/67; PULSE 74; RESP 18; TEMP 99.1
[2023-12-25 07:25] LABS: BASOPHILS % 0.6 % (0.0-2.0); EOSINOPHILS % 2.4 % (0.0-5.0); HEMATOCRIT. 27.2 % (42.0-52.0); HEMOGLOBIN. 8.7 g/dL (14.0-18.0); LYMPHOCYTES % 19.6 % (20.0-50.0); MEAN CORPUSCULAR HEMOGLOBIN 24.3 pg (28.0-32.0); MEAN CORPUSCULAR HGB CONC 31.9 g/dL (31.0-37.0); MEAN CORPUSCULAR VOLUME 76.1 fL (80.0-94.0); MEAN PLATELET VOLUME 8.4 fl (7.4-10.4); MONOCYTES % 11.6 % (2.0-8.0); NEUTROPHILS % 65.8 % (40.0-76.0); PLATELET 217 x1000/uL (130-400); RED BLOOD CELL COUNT 3.58 mill/uL (4.7-6.1); WHITE BLOOD COUNT 7.5 x1000/uL (4.5-11.0)
[2023-12-25 07:50] LABS: DIFFERENTIAL COMMENT 1
[2023-12-25 08:00] VITALS: BP 185/92; PULSE 67; RESP 18; TEMP 97.7
[2023-12-25 08:08] LABS: CHLORIDE 113 mEq/L (98-107); POTASSIUM 4.4 mEq/L (3.5-5.1); SODIUM 140 mEq/L (136-145)
[2023-12-25 08:09] LABS: CARBON DIOXIDE 19 mEq/L (21-32)
[2023-12-25 08:10] LABS: CALCIUM 8.2 mg/dL (8.7-10.4)
[2023-12-25 08:14] LABS: CREATININE 1.7 mg/dL (0.6-1.3); GLUCOSE 80 mg/dL (70-105)
[2023-12-25 08:15] LABS: UREA NITROGEN BLOOD 11 mg/dL (9-23)
[2023-12-25 08:16] LABS: ALANINE AMINOTRANSFERASE 10 IU/L (10-49); ALBUMIN 3.4 g/dL (3.2-4.8); ASPARTATE AMINOTRANSFERASE 29 IU/L (<34)
[2023-12-25 08:17] LABS: BILIRUBIN TOTAL 0.4 mg/dL (0.1-1.0); PROTEIN TOTAL 5.9 g/dL (6.0-8.3)
[2023-12-25 10:27] VITALS: BP 165/94; PULSE 67; TEMP 97.7; O2SAT 100
== END 2023-12-25 10:40 | disposition home or self-care (01) | DRG 501 ==
LOC: ER 10:42 → EDBEDREQ 12:18 → 8WST 17:35
PROVIDERS: ADMIT Internal Medicine; ATTEND Internal Medicine
PROC: 30233N1 Transfusion of Nonautologous Red Blood Cells into Peripheral Vein, Percutaneous Approach (ICD-10-PCS; principal; 2023-12-23)
DX: N40.1 Benign prostatic hyperplasia with lower urinary tract symptoms (principal); N17.9 Acute kidney failure, unspecified; E87.0 Hyperosmolality and hypernatremia; E11.22 Type 2 diabetes mellitus with diabetic chronic kidney disease; I13.0 Hypertensive heart and chronic kidney disease with heart failure and stage 1 through stage 4 chronic kidney disease, or unspecified chronic kidney disease; I50.9 Heart failure, unspecified; D50.9 Iron deficiency anemia, unspecified; E11.51 Type 2 diabetes mellitus with diabetic peripheral angiopathy without gangrene; R33.8 Other retention of urine; E78.5 Hyperlipidemia, unspecified; N18.30 Chronic kidney disease, stage 3 unspecified; J44.89 Other specified chronic obstructive pulmonary disease; I65.22 Occlusion and stenosis of left carotid artery; I34.0 Nonrheumatic mitral (valve) insufficiency; I16.1 Hypertensive emergency; I25.2 Old myocardial infarction; Z87.891 Personal history of nicotine dependence; Z86.73 Personal history of transient ischemic attack (TIA), and cerebral infarction without residual deficits; Z79.82 Long term (current) use of aspirin; Z79.02 Long term (current) use of antithrombotics/antiplatelets; R30.9 Painful micturition, unspecified
CPT/HCPCS: 36415; 80048; 80053; 82270; 82607; 82728; 82746; 83540; 83550; 83880; 84484; 85014; 85018; 85025; 85044; 85049; 85384; 86850; 86900; 86920; 93005; 99291; C9113; J0360; P9016

== ENCOUNTER 2024-12-08 15:08 | Emergency (ER) | payer MEDICARE, MEDICAID ==
[~2024-12-08] VITALS: Ht 172.7 cm; Wt 87.0 kg
[~2024-12-08 15:08] MED LIST changes: -ABIL5 PO; +ATOR20TA65 PO; -BENA-8 PO; -BUSP10TA4 PO; -CLON0.3T4 PO; -CLOP75TA33 PO; -CODE473S7 MT; +DOCU250C14 PO; +FERR-63 PO; -FERR-71 MT; +FINA5TAB11 PO; -FLUT1DIS3 IH; +FOLI0.4T6 PO; -FURO-151 PO; +GABA-1180 PO; -GABA-532 PO; +HYDR50TA39 PO; -HYDR50TA40 PO; -INSHUMSS SUBCUT; +NIFE90TA60 MT; +NITR100C PO; -OXYB-52 PO; -POTA-204 MT; +TAMS-54 PO
[2024-12-08 15:15] VITALS: O2SAT 99
[2024-12-08] MEDS ORDERED: TAMS-54 MT (15:25)
[2024-12-08 17:44] VITALS: BP 152/70; PULSE 75; RESP 18; TEMP 36.6; O2SAT 99
== END 2024-12-08 18:11 | disposition home or self-care (01) ==
LOC: ER 15:08
DX: R33.8 Other retention of urine (principal); I11.0 Hypertensive heart disease with heart failure; I50.9 Heart failure, unspecified; E11.9 Type 2 diabetes mellitus without complications; Z79.82 Long term (current) use of aspirin; Z86.73 Personal history of transient ischemic attack (TIA), and cerebral infarction without residual deficits; Z79.899 Other long term (current) drug therapy; Z79.84 Long term (current) use of oral hypoglycemic drugs
CPT/HCPCS: 51702; 99284

== ENCOUNTER 2025-05-04 17:45 | Emergency (ER) | payer MEDICARE, MEDICAID ==
[~2025-05-04] VITALS: Ht 182.9 cm; Wt 77.0 kg
[~2025-05-04 17:45] MED LIST changes: +TAMS-54 MT
[2025-05-04 17:50] VITALS: O2SAT 97
[2025-05-04] MEDS: HYDROCODONE/ACETAMINOPHEN 5/325MG TABLET PO ONE (20:18)
[2025-05-04 21:11] VITALS: BP 156/79; PULSE 78; RESP 16; TEMP 36.6; O2SAT 98
== END 2025-05-04 21:15 | disposition home or self-care (01) ==
LOC: ER 17:45
DX: T83.021A Displacement of indwelling urethral catheter, initial encounter (principal); R33.9 Retention of urine, unspecified; E11.9 Type 2 diabetes mellitus without complications; I11.0 Hypertensive heart disease with heart failure; I50.9 Heart failure, unspecified; J44.89 Other specified chronic obstructive pulmonary disease; N40.1 Benign prostatic hyperplasia with lower urinary tract symptoms; Z86.73 Personal history of transient ischemic attack (TIA), and cerebral infarction without residual deficits; Z79.899 Other long term (current) drug therapy; Z79.84 Long term (current) use of oral hypoglycemic drugs; Z79.82 Long term (current) use of aspirin; Y92.89 Other specified places as the place of occurrence of the external cause
CPT/HCPCS: 51702; 99284